=== PATIENT | female | born 1970 | race Two or more races ===

== ENCOUNTER 2024-04-28 10:59 | Emergency (ER) | payer OTHER ==
[~2024-04-28] VITALS: Ht 167.6 cm; Wt 59.0 kg
[2024-04-28] MEDS ORDERED: ATORVASTATIN CA20 MG PO (11:03)
[2024-04-28] MEDS ORDERED: FLUOXETINE HCL60 MG PO (11:04)
[2024-04-28] MEDS ORDERED: PEPCID20 MG PO (11:04)
[2024-04-28] MEDS ORDERED: LORazepam 2 MG/ML DISP.SYRIN ONE (11:15)
[2024-04-28] MEDS ORDERED: LORazepam 2 MG/ML VIAL IM ONE (11:15)
[2024-04-28 14:13] LABS: ABG PH 7.419 (7.35-7.45); ABG PO2 100.8 mmHg (80-100); ABG pCO2 33.4 mmHg (35-45); BASE EXCESS -2.5 mmol/l; BICARBONATE 21.1 mmol/l (23-25); SaO2 97.8 %; Tco2 22.1 mmol/l; allen test SATISFACTORY; o2 21 %; puncture site RADIAL RIGHT
== END 2024-04-28 15:52 | disposition home or self-care (01) ==
LOC: ER 11:02
PROVIDERS: Emergency Medicine
DX: F41.0 Panic disorder [episodic paroxysmal anxiety] (principal); F32.89 Other specified depressive episodes; Z20.822 Contact with and (suspected) exposure to COVID-19